=== PATIENT | female | born 1995 | race Caucasian/White ===

== ENCOUNTER 2016-10-06 16:28 | Emergency (ER) | payer OTHER ==
[~2016-10-06 16:28] MED LIST: BACTRIM DS TABL1 TA2 PO; K-TAB ER20 MEQ PO; MACROBID 100 M100 MG PO; NO MEDICATIONS; PRENATAL1 TA1 PO; PYRIDIUM PO; VOLTAREN75 MG PO; ZOFRAN ODT4 MG PO; ZOFRANODT PO
== END 2016-10-06 16:46 | disposition home or self-care (01) ==
LOC: SED 16:28
DX: H66.92 Otitis media, unspecified, left ear (principal); F17.210 Nicotine dependence, cigarettes, uncomplicated; J45.909 Unspecified asthma, uncomplicated
CPT/HCPCS: 99282

== ENCOUNTER 2016-11-21 12:47 | Emergency (ER) | payer OTHER ==
[2016-11-21] MEDS ORDERED: PRILOSEC (13:10)
[2016-11-21 13:19] LABS: URINE SOURCE CLEAN CATCH
[2016-11-21 13:21] LABS: URINE APPEARANCE HAZY; URINE BILIRUBIN NEG (NEG); URINE BLOOD TRACE-INTACT (NEG); URINE COLOR YELLOW; URINE GLUCOSE NEG (NORM); URINE KETONE NEG (NEG); URINE LEUKOCYTE ESTERASE 2+ (NEG); URINE NITRATE NEG (NEG); URINE PH 6.5 (5-8); URINE PROTEIN TRACE (NEG); URINE SPECIFIC GRAVITY 1.025 (1.003-1.035); URINE UROBILINOGEN 0.2 MG/DL (NORM)
[2016-11-21 13:26] LABS: MICRO INDICATED? YES
[2016-11-21 13:27] LABS: CULTURE INDICATED? YES; URINE BACTERIA 3+ (NEG); URINE GRANULAR CAST 0-2 /[HPF]; URINE HYALINE CAST 0-2 /[HPF]; URINE MUCUS PRESENT; URINE SQUAMOUS EPITHELIAL CELL MANY /[HPF]; URINE WBC 50-100 /[HPF] (0-5)
== END 2016-11-21 14:05 | disposition home or self-care (01) ==
LOC: SED 12:47
PROVIDERS: Nurse Practitioner Family
DX: N39.0 Urinary tract infection, site not specified (principal); K21.9 Gastro-esophageal reflux disease without esophagitis; Z98.890 Other specified postprocedural states
CPT/HCPCS: 81003; 84703; 87086; 99283

== ENCOUNTER 2017-01-02 22:11 | Emergency (ER) | payer OTHER ==
[~2017-01-02 22:11] MED LIST changes: +PRILOSEC
== END 2017-01-02 22:37 | disposition left against medical advice (07) ==
LOC: SED 22:11
DX: Z53.21 Procedure and treatment not carried out due to patient leaving prior to being seen by health care provider (principal)

== ENCOUNTER → 2017-02-18 | Day surgery (SDC) | payer OTHER ==
--- NOTE | ~2017-02-18 | OR ---
Unit #: [id number] #: [id number] Patient: RONNIE WONG [id number] [address] [address] [id number] MR#: [id number] NAME: RONNIE WONG ROOM: Date of Procedure: 02/18/2017 Admission Date: 02/18/2017 Surgeon: Mauricio De La Garza M.D. : 1995 Attending Physician: Mauricio De La Garza M.D. Primary Care Physician: Generic Doctor Not In System PROCEDURE OPERATIVE NOTE PROCEDURE PERFORMED EGD with biopsy. INDICATIONS 20-year-old female with significant epigastric pain, persistent nausea, vomiting, irregular bowel movements with diarrhea undergoing evaluation with upper endoscopy. MEDICATIONS Monitored anesthesia. FINDINGS 1. Small hiatal hernia. 2. Mild gastritis, biopsies taken. 3. Normal duodenum with duodenal biopsies taken looking for celiac disease. PLAN Follow up on the pathology report. Continue with PPI therapy for now. DESCRIPTION OF PROCEDURE Patient was explained the procedure risks and benefits along with risks and benefits of anesthesia. She was brought to endoscopy room. Propofol anesthesia was given. Bite block was placed. Scope was passed down the mouth and esophagus, stomach, duodenum with duodenal findings as described. Biopsies taken. Gently I pulled the scope out of patient's mouth. She tolerated it well. Dictated by... Jb Johnson/liban TD: 02/19/2017 09:23 JOB #: [id number] Unit #: [id number] #: [id number] Patient: RONNIE WONG PROCEDURE OPERATIVE NOTE Page 1 of 1 X Mauricio De La Garza MD X PROCEDURE OPERATIVE NOTE
== END | disposition home or self-care (01) ==
LOC: COPS 10:01
DX: K29.50 Unspecified chronic gastritis without bleeding (principal); K29.80 Duodenitis without bleeding; K44.9 Diaphragmatic hernia without obstruction or gangrene; F17.210 Nicotine dependence, cigarettes, uncomplicated; Z98.890 Other specified postprocedural states
CPT/HCPCS: 84703; 88305; 88312; J2250

== ENCOUNTER 2017-03-15 17:43 | Emergency (ER) | payer OTHER ==
[~2017-03-15] VITALS: Ht 165.1 cm; Wt 77.1 kg
--- NOTE | ~2017-03-15 | CT2 ---
[facility] A Service of [facility] / [facility] RADIOLOGY TEXT RESULTS PATIENT: RONNIE WONG LOCATION: SED : [birth year] UNIT #: [id number] AGE: [address]: ANDREW WEST SEX: F ORDER DR: [id number] [address] [address] [id number] E MR#: [id number] Acc #: [id number] NAME: RONNIE WONG : 1995 SEX: F STUDY DATE/TIME: 03/15/2017 19:31 UNIT: SED ROOM: STUDY DESCRIPTION: CT Abd and Pelv W Cont Attending Physician: Andrew West R.N. Ordering Physician: Dionne Not Listed Primary Care Physician: No Primary Care Physician MEDICAL IMAGING REPORT This report is preliminary unless electronic signature is present. EXAM CT abdomen and pelvis with IV contrast. HISTORY Nausea, vomiting, and diarrhea today. Abdomen pain. TECHNIQUE CT abdomen and pelvis was performed with IV contrast. This CT exam was performed with one or more of the following radiation dose reduction techniques: automatic exposure control, adjustment of mA and/or kV according to patient size, and iterative reconstruction. FINDINGS CT ABDOMEN: Incidental focal fatty infiltration in the medial segment, left hepatic lobe, adjacent to the falciform ligament. No hepatic mass. No biliary dilatation. The gallbladder, spleen, pancreas, kidneys, and adrenal glands are normal. No bowel dilatation. Normal caliber abdominal aorta. No adenopathy. CT PELVIS: No pelvic mass or fluid collection. Normal appendix. The uterus and adnexa are unremarkable. Urinary bladder is normal. IMPRESSION No acute findings. Dictated by... Fahad Corrales M.D. THIS IS AN ELECTRONICALLY VERIFIED REPORT Fahad Corrales M.D. at 03/16/2017 3:32 PM DFL/reed [facility] A Service of [facility] RADIOLOGY TEXT RESULTS PATIENT: RONNIE WONG LOCATION: SED : 93 UNIT #: [id number] AGE: [address]: ANDREW WEST SEX: F ORDER DR: TD: 03/16/2017 11:21 JOB #: [id number] MEDICAL IMAGING REPORT Page 1 of 1
[2017-03-15 18:28] LABS: BASOPHIL% 0.1 % (0-2.5); EOSINOPHIL# 0.1 X10e3 (0-0.7); EOSINOPHIL% 0.8 % (0.0-7.0); HEMATOCRIT 47.1 % (35.0-45.0); LYMPHOCYTE# 0.6 X10e3 (1.0-3.5); LYMPHOCYTE% 4.4 % (17.0-45.0); MEAN CELL VOLUME 86.9 FL (83-96); MEAN CORPUSCULAR HEMOGLOBIN 29.6 PG (28-34); MONOCYTE# 0.6 X10e3 (0-1.0); MONOCYTE% 4.3 % (3.0-12.0); NEUTROPHIL# 11.9 X10e3 (1.5-7.1); NEUTROPHIL% 90.4 % (40-75); PLATELET COUNT 178 X10e3 (140-420); RED BLOOD COUNT 5.42 X10e (3.90-5.30); RED CELL DISTRIBUTION WIDTH 13.2 % (11.0-15.5); WHITE BLOOD COUNT 13.2 X10e3 (4.0-10.5)
[2017-03-15 18:30] LABS: DIFF IND NO
[2017-03-15 18:45] LABS: ALBUMIN SERUM 4.8 g/dL (3.5-5.0); BILIRUBIN, DIRECT 0.1 mg/dL (0.0-0.2); BILIRUBIN,INDIRECT 0.8 mg/dL (0.0-0.9); BILIRUBIN,TOTAL 0.9 mg/dL (0.2-2.0); CREATININE SERUM 0.7 mg/dL (0.6-1.4); GLOM FILT RATE Estimated 122.1 mL/min (>60); POTASSIUM 3.6 mmol/L (3.5-5.1); PROTEIN TOTAL SERUM 7.9 g/dL (6.0-8.3)
[2017-03-15 19:01] LABS: URINE SOURCE CLEAN CATCH
[2017-03-15 19:04] LABS: URINE APPEARANCE CLEAR; URINE BILIRUBIN NEG (NEG); URINE BLOOD 1+ (NEG); URINE COLOR YELLOW; URINE GLUCOSE NEG (NORM); URINE KETONE TRACE (NEG); URINE LEUKOCYTE ESTERASE NEG (NEG); URINE NITRATE NEG (NEG); URINE PH 5.5 (5-8); URINE PROTEIN NEG (NEG); URINE SPECIFIC GRAVITY >=1.030 (1.003-1.035); URINE UROBILINOGEN 0.2 MG/DL (NORM)
[2017-03-15 19:11] LABS: MICRO INDICATED? YES
[2017-03-15 19:18] LABS: URINE AMORPHOUS SEDIMENT AMORP URATES; URINE BACTERIA 2+ (NEG); URINE MUCUS PRESENT; URINE SQUAMOUS EPITHELIAL CELL FEW /[HPF]
== END 2017-03-15 20:56 | disposition home or self-care (01) ==
LOC: SED 17:43
PROVIDERS: Nurse Practitioner
DX: K52.9 Noninfective gastroenteritis and colitis, unspecified (principal); Z87.891 Personal history of nicotine dependence
CPT/HCPCS: 36415; 74177; 80048; 80076; 81003; 83690; 84703; 85025; 87086; 96361; 96374; 96375; 96376; 99284; J2270; J2405; Q9967